=== PATIENT | female | born 1930 | race Caucasian/White ===

== ENCOUNTER 2017-08-22 11:42 | Emergency (ER) | payer OTHER, BC ==
--- NOTE | 2017-08-22 13:16 | EDPHY ---
H & P Time Seen by Provider: 08/22/17 11:50 HPI/ROS: This patient fell 10 days prior to arrival getting out of bed. She explains that her cane was out of reach and she got up abruptly losing her balance and striking her face against the bed stand. She points to her swollen zygoma as the site of impact explains that she had associated black eye that is now resolving but that the swelling to the zygoma persists concerned her and friend who saw her prompting her visit today given the lack of resolution of the swelling. She reports minimal discomfort but moderate tenderness when she touches the area. She also admits pain to the apex of the left shoulder from the fall. She denies any other injuries. She reports that the shoulder pain is mild at baseline becomes moderate with AB duction. No other exacerbating factors for her shoulder pain. She admits that she had a generalized headache for few hours after striking her cheek bone but denies any LOC. ROS: Constitutional: No complaints HEENT: No dental injuries nasal injuries or other complaints. Neuro: No diplopia, confusion, focal numbness tingling weakness or other complaints. Pulmonary: No chest wall pain no shortness of breath. Cardiovascular: No heart palpitations or lightheadedness. GI: No belly pain, nausea or vomiting Musculoskeletal: No midline neck or back pain since the fall. No other extremity injuries besides the left shoulder. 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 HEENT: Is no external evidence of trauma on exam except for swelling to the left zygoma-1.5 cm area of swelling ecchymosis and mild tenderness to the apex of the zygoma. Nose atraumatic. Ears: Clear bilaterally with no hemotympanum. Oropharynx: No dental trauma or malocclusion. No intraoral lacerations. Eyes: Pupils are equal and reactive to light. Extraocular motions are intact. Optic fundi: Clear with no papilledema or hemorrhage. No diplopia on extraocular motions. Neck: Trachea is midline with no stridor. The patient has no midline neck tenderness and retains a full range of motion without increase in pain. Lungs: Clear to auscultation bilaterally Cardiac: Regular rate and rhythm no murmur gallop or rub. Chest: Nontender. Abdomen: Soft nontender no organomegaly Back: Nontender Extremities: Atraumatic except for left shoulder Left shoulder: Patient has mild ecchymosis to the apex with tenderness. She has limited range of motion AB duction due to pain no difficulty with internal or external rotation. Neuro: GCS of 15. Cranial nerves II through XII intact. Cerebellar exam is normal as judged by symmetric rapid hand movements bilaterally. No pronator drift. No sensory or motor deficits are appreciated. Initial differential diagnosis: Zygoma fracture, facial hematoma, minor head injury, shoulder contusion, shoulder fracture, rotator cuff injury-this is partial list of diagnoses considered. Constitutional: Initial Vital Signs Temperature (C) 36.6 C 08/22/17 11:47 Heart Rate 89 08/22/17 11:47 Respiratory Rate 18 08/22/17 11:47 Blood Pressure 131/82 H 08/22/17 11:47 O2 Sat (%) 92 08/22/17 11:47 O2 Delivery Mode Room Air Allergies/Adverse Reactions: No Known Allergies Allergy (Unverified 08/22/17 11:46) Home Medications: Medication Instructions Recorded Amlodipine Besylate 08/22/17 Atenolol 08/22/17 Avapro 08/22/17 Furosemide 08/22/17 Oxybutynin 08/22/17 Potassium Chloride 08/22/17 Pravastatin Sodium 08/22/17 Warfarin Sodium 08/22/17 MDM/Departure - MDM Diagnostics: CT facial bones: Negative for facial bone fractures per radiologist with whom I discussed the study. I also reviewed these films myself. Shoulder x-ray: Small avulsion fracture laterally at the humeral head by my interpretation. I spoke with radiologist Dr. Calvert and confirmed this finding. Imaging: Discussed imaging studies w/ call or contact centre operator Radiologist (The CT scan), I viewed and interpreted images myself (The plain films.) ED Course/Re-evaluation: Patient declined any analgesics here. I counseled regarding her CT facial bones -normal no fracture with traumatic hematoma counseled regarding hematoma care- ice and analgesics. Counseled regarding her avulsion fracture note the insertion supraspinatus on the humeral head left shoulder. We placed her in a sling. She understands need to call the orthopedic physician-Dr. Crowley on-call to arrange follow- up appointment for further evaluation for sometime within the next 3-5 days. She will use ice and Tylenol for analgesia. She understands need to return emergency department should she develop worsening of the symptoms. Discussion: Patient here with subcu minor head injury without clinical evidence to suggest post concussive syndrome, subdural bleed or other major complicating factors. The persistent facial swelling turns out to be hematoma likely due to her Coumadin. She has small avulsion fracture of the shoulder. - Depart Disposition: Home, Routine, Self-Care Clinical Impression: Traumatic hematoma of face Qualifiers: Encounter type: initial encounter Qualified Code(s): S00.83XA - Contusion of other part of head, initial encounter Fracture of humeral head, closed Qualifiers: Encounter type: initial encounter Laterality: left Qualified Code(s): S42.292A - Other displaced fracture of upper end of left humerus, initial encounter for closed fracture Clinical Impression: (Ruled Out): Radial head fracture, closed Condition: Good Instructions: Hematoma (ED), Proximal Humerus Fracture (ED) Additional Instructions: Diagnoses: 1. Humeral head fracture-nondisplaced 2. Facial hematoma Plan: Ice behind washcloth to face 20 min at a time 3 times a day. Do not apply prolonged heat to the area of swelling. Tylenol for shoulder pain as needed Sling when your up and about for the shoulder. Follow up with orthopedic physician listed below for further evaluation of her shoulder sometime within the next week. Return if you develops any significant worsening of your symptoms despite the treatment plan. Referrals: Bindu Vila MD [Primary Care Provider] - As per Instructions Chris Crowley MD [Medical Doctor] - As per Instructions
[2017-08-22 13:42] VITALS: BP 150/80
== END 2017-08-22 13:40 | disposition home or self-care (01) ==
LOC: CED 11:42
DX: S42.292A Other displaced fracture of upper end of left humerus, initial encounter for closed fracture (principal); S00.83XA Contusion of other part of head, initial encounter; Z79.01 Long term (current) use of anticoagulants; Z87.891 Personal history of nicotine dependence; W01.190A Fall on same level from slipping, tripping and stumbling with subsequent striking against furniture, initial encounter; Y92.89 Other specified places as the place of occurrence of the external cause; Y99.8 Other external cause status; Y93.89 Activity, other specified
CPT/HCPCS: 70486; 73030; 99284; A4565